=== PATIENT | male | born 1950 | race Caucasian/White ===

== ENCOUNTER 2019-03-28 10:48 | Day surgery (SDC) | payer MEDICARE ==
[~2019-03-28] VITALS: Ht 182.9 cm; Wt 86.0 kg
[~2019-03-28 10:48] MED LIST: ELIQUIS5 MG PO; ENTRESTO 24 MG1 EAC1 PO; FURO20 PO; HYDHCL25 PO; KLOR-CON SPRINK8 MEQ PO; LISI20 PO; METO50ER PO; NEBI10 PO; Prevacid Soluta30 MG; SPIR25 PO
--- NOTE | 2019-03-28 12:33 | NUR ---
On standby for cardioversion. Pt. on 3LNC. with SATS=94-96% Leon well
--- NOTE | 2019-03-28 13:05 | NUR ---
ASSUMED CARE OF PT POST PROCEDURE. PT IS AWAKE AND CONVERSING APPROPRIATELY. PT DENIES PAIN, SOB OR NAUSEA. MONITOR V PACED 75-80, B/P 103/65, SPO2 95% RA.
--- NOTE | 2019-03-28 13:30 | NUR ---
PT DRESSED SELF WITHOUT ISSUE, IV REMOVED-CANNULA INTACT.
--- NOTE | 2019-03-28 13:45 | NUR ---
PT AND RECEIVED DISCHARGE INSTRUCTIONS AND "AFTER CARE" INSTRUCTIONS, VERBALIZED GOOD UNDERSTANDING. PT LEFT FACILITY VIA W/C, CONDITION STABLE.
== END 2019-03-28 22:57 | disposition home or self-care (01) ==
LOC: MHTC 10:48
DX: I48.19 Other persistent atrial fibrillation (principal); I42.9 Cardiomyopathy, unspecified
CPT/HCPCS: 92960; 93005; 93010; 99152; 99153; J2250; J3010; J7030

== ENCOUNTER 2023-01-26 06:52 | Day surgery (SDC) | payer MEDICARE ==
[2023-01-26] VITALS (7 sets, daily range): BP systolic 127–143; BP diastolic 75–85
[~2023-01-26] VITALS: Ht 182.9 cm; Wt 86.2 kg
[~2023-01-26 06:52] MED LIST changes: +Aspir 8181 MG PO; +CHOLECALCIFEROL 100 MCG PO; +MAG OX PO; +METF500 PO; -Prevacid Soluta30 MG; +Prevacid Soluta30 MG PO; +REVATIO10 MG/1 ML; +REVATIO10 MG/1 ML PO; +ROSU5 PO
[2023-01-26] MEDS ORDERED: VITAMIN D5000 UNIT PO (07:26)
[2023-01-26] MEDS ORDERED: MAGNESIUM OXID500 MG PO (07:27)
[2023-01-26] MEDS ORDERED: POTA10T PO (07:27)
[2023-01-26] MEDS ORDERED: GLUCOSAMINE-CH1 EA49 PO (07:28)
[2023-01-26] MEDS ORDERED: REVATIO20 MG PO (07:29)
--- NOTE | 2023-01-26 11:52 | NUR ---
pt given lunch tray.
--- NOTE | 2023-01-26 12:36 | NUR ---
TR BAND FULLY DEFLATED. SITE SOFT AND NON-TENDER PER PT. NO BLEEDING NOTED.
--- NOTE | 2023-01-26 12:45 | NUR ---
PT AMBULATED TO RESTROOM W/O ASSISTANCE.
--- NOTE | 2023-01-26 12:57 | NUR ---
SITE SOFT AND NON-TENDER PER PT. NO BLEEDING NOTED.
--- NOTE | 2023-01-26 13:50 | NUR ---
RIGHT RAD TR BAND SITE STILL SOFT NON-TENDER WITH NO HEMATOMA,NO PULSATILE BLEEDING. RIGHT DEFLATED TR BAND REMOVED AND POLYMEM PLACED OVER SITE WITH WRIST BOARD IN PLACE. 20 G IV DISCONTINUED FROM LEFT HAND WITH INTACT CANNULA. PT ESCORTED OUT VIA WHEELCHAIR ESCORT.
== END 2023-01-26 13:45 | disposition home or self-care (01) ==
LOC: MHTC 06:52
DX: I25.10 Atherosclerotic heart disease of native coronary artery without angina pectoris (principal); I42.0 Dilated cardiomyopathy; R07.9 Chest pain, unspecified; I48.0 Paroxysmal atrial fibrillation; E78.5 Hyperlipidemia, unspecified; Z95.0 Presence of cardiac pacemaker
CPT/HCPCS: 76937; 93458; 99152; A9270; C1769; C1894; J1644; J2250; J3010; J7030; J7050; Q9967

== ENCOUNTER 2024-09-27 06:17 | Day surgery (SDC) | payer OTHER ==
[~2024-09-27 06:17] MED LIST changes: +GLUCOSAMINE-CH1 EA49 PO; +MAGNESIUM OXID500 MG PO; +POTA10T PO; +REVATIO20 MG PO; +VITAMIN D5000 UNIT PO
[2024-09-27] MEDS ORDERED: ELIQUIS5 M2 PO (06:28)
[2024-09-27] MEDS ORDERED: Amiodarone HCl200 MG PO (06:28)
[2024-09-27] MEDS ORDERED: CARV6.25 PO (06:28)
[2024-09-27] MEDS ORDERED: LANS30EC PO (06:29)
[2024-09-27 06:47] VITALS: BP 142/84
[2024-09-27] MEDS ORDERED: NS 1,000 ML IV ONE (06:47)
[2024-09-27 07:00] VITALS: BP 144/83
[2024-09-27 07:08] VITALS: BP 143/87
[2024-09-27 07:12] VITALS: BP 115/70
--- NOTE | 2024-09-27 07:16 | NUR ---
ASSUMED CARE FROM ANESTHESIA. PT AWAKE AND VERBALIZING WELL. A/V PACED POST CARDIOVERSION.
[2024-09-27 07:24] VITALS: BP 127/75
[2024-09-27 07:33] VITALS: BP 133/83
--- NOTE | 2024-09-27 08:19 | NUR ---
PT VERBALIZED UNDERSTANDING OF WRITTEN AND VERBAL D/C INST. IV REMOVED. A/V PACED ON D/C. PT TAKEN OUT OF THE [facility]ENTER VIA W/C.
[2024-09-27] MEDS ORDERED: Propofol 10mg/ml 20 ml Vial (Procedural) IV ONE (10:16)
== END 2024-09-27 23:00 | disposition home or self-care (01) ==
LOC: MHTC 06:17
DX: I48.19 Other persistent atrial fibrillation (principal); I25.10 Atherosclerotic heart disease of native coronary artery without angina pectoris; E78.5 Hyperlipidemia, unspecified; E11.9 Type 2 diabetes mellitus without complications; Z79.01 Long term (current) use of anticoagulants; Z79.899 Other long term (current) drug therapy
CPT/HCPCS: 92961; 93005; 93010; J2704; J7030